=== PATIENT | female | born 1955 | race Caucasian/White ===

== ENCOUNTER → 2016-04-30 | Outpatient (CLI) | payer BC ==
[~2016-04-30] MED LIST: ALPR0.2550 PO; ATR20T PO; CALCIUM PO; CETI10CA PO; DCS100C PO; ESTR0.3T PO; HCT25T PO; METO-272 PO; POTASSIUM CLORIDE PO; VITAMIN E PO
[2016-04-30 11:56] LABS: ALANINE AMINOTRANSFERASE 24 U/L (0-55); ALBUMIN 4.1 G/DL (3.2-4.5); ANION GAP 9 MMOL/L (5-14); ASPARTATE AMINO TRANSFERASE 15 U/L (5-34); BILIRUBIN,TOTAL 0.8 MG/DL (0.1-1.0); BLOOD UREA NITROGEN 17 MG/DL (7-18); BUN/CREATININE RATIO 22; CALCIUM 9.8 MG/DL (8.5-10.1); CARBON DIOXIDE 28 MMOL/L (21-32); CHLORIDE 102 MMOL/L (98-107); CHOLESTEROL 136 MG/DL (< 200); CREATININE SERUM 0.79 MG/DL (0.60-1.30); DIRECT LDL 74 MG/DL (1-129); GFR ESTIMATED > 60; GLUCOSE 108 MG/DL (70-105); POTASSIUM 3.4 MMOL/L (3.6-5.0); SODIUM 139 MMOL/L (135-145); TOTAL PROTEIN 7.2 G/DL (6.4-8.2); TRIGLYCERIDES 169 MG/DL (<150); VLDL CHOLESTEROL 34 MG/DL (5-40)
== END ==
LOC: LAB 11:17
PROVIDERS: ATTEND Internal Medicine Cardiovascular Disease
DX: I25.10 Atherosclerotic heart disease of native coronary artery without angina pectoris (principal); I10 Essential (primary) hypertension; E78.4 Other hyperlipidemia; R73.01 Impaired fasting glucose
CPT/HCPCS: 36415; 80053; 80061

== ENCOUNTER → 2016-05-23 | Outpatient (CLI) | payer BC ==
--- OUTSIDE RECORDS SUMMARY | 2016-05-23 15:42 | XMS REPORT | Continuity of Care Document ---
Author Author [facility] Organization [facility] Address Unknown Phone Unavailable Allergies Active Description Code Type Severity Reaction Onset Reported/Identified Relationship to Patient Clinical Status Yes aspirin [id number] Drug Allergy Severe HIVES 08/03/2012 Yes iodine [id number] Drug Allergy Severe ANAPHYLAXIS, [place] 08/03/2012 Yes povidone-iodine [id number] Drug Allergy Severe ANAPHYLAXIS , [place] 08/03/2012 Yes celery [id number] Drug Allergy Unknown N/A 08/03/2012 Yes ibuprofen [id number] Drug Allergy Unknown HIVES 08/03/2012 Yes kiwi [id number] Drug Allergy Unknown N/A 08/03/2012 Yes red dye [id number] Drug Allergy Unknown HIVES 08/03/2012 Yes shellfish derived [id number] Drug Allergy Unknown N/A 08/03/2012 Yes Soap [id number] Drug Allergy Unknown HIVES 08/03/2012 Yes strawberry [id number] Drug Allergy Unknown N/A 08/03/2012 Medications Problems Date Dx Coded Attending Type Code Diagnosis Diagnosed By 08/03/2012 Ot 272.4 HYPERLIPIDEMIA NEC/NOS 08/03/2012 Ot 401.9 HYPERTENSION NOS 08/03/2012 Ot 414.01 CORONARY ATHEROSCLEROSIS OF [place] CORON 08/03/2012 Ot 477.9 ALLERGIC RHINITIS NOS 08/03/2012 Ot 786.59 CHEST PAIN NEC 08/03/2012 Ot 790.29 OTHER ABNORMAL GLUCOSE 08/03/2012 Ot V07.4 HORMONE REPLACEMENT THERAPY (POSTMENOPAU 08/03/2012 Ot V15.08 ALLERGY TO RADIOGRAPHIC DYE 08/03/2012 Ot V58.69 OTH MED,LT,CURRENT USE 08/04/2014 Ot 610.0 08/04/2014 Ot 793.89 08/04/2014 Ot V76.12 08/04/2014 Ot 719.47 08/04/2014 Ot 722.4 08/04/2014 Ot 726.73 08/04/2014 Ot 611.72 08/04/2014 Ot V76.12 08/04/2014 MELINA OSULLIVAN FACC, ALI FACP CCDS Ot 272.4 08/04/2014 MELINA OSULLIVAN FAC, ALI FACP CCDS Ot V58.69 08/04/2014 ROGER OSULLIVAN, SORAYA Curiel Ot 793.89 08/04/2014 ROGER OSULLIVAN, SORAYA Curiel Ot V76.12 08/04/2014 MAIDA OSULLIVAN, FIONA M Ot 455.9 08/04/2014 MAIDA OSULLIVAN, FIONA M Ot 530.11 08/04/2014 MAIDA OSULLIVAN, FIONA M Ot 531.90 08/04/2014 MAIDA OSULLIVAN, FIONA M Ot 553.3 08/04/2014 AMIDA OSULLIVAN, FIONA M Ot 562.10 08/04/2014 MAIDA OSULLIVAN, FIONA M Ot V16.0 08/04/2014 MAIDA OSULLIVAN, FIONA M Ot V76.51 08/04/2014 MAIDA OSULLIVAN, FIONA M Ot V72.84 08/04/2014 BAIMA, OVI L OLIVE PICKER Ot 272.4 08/04/2014 CASIMIROMA OVI L OLIVE PICKER Ot V58.69 08/04/2014 ROGER OSULLIVAN, SORAYA Curiel Ot 610.4 08/04/2014 BAIMA, OVI L OLIVE PICKER Ot 272.4 08/04/2014 BAIMA, OVI L OLIVE PICKER Ot 401.9 08/04/2014 BAIMA OVI L OLIVE PICKER Ot 414.01 08/04/2014 ROGER OSULLIVAN, SORAYA Curiel Ot 780.79 08/04/2014 BAIMA, OVI L OLIVE PICKER Ot 272.4 08/04/2014 BAIMA, OVI L OLIVE PICKER Ot 414.00 10/01/2014 BAIMA, OVI L OLIVE PICKER Ot 272.4 10/01/2014 BAIMA, OVI L OLIVE PICKER Ot 414.00 10/21/2014 MELINA OSULLIVAN FACC, ALI FACP CCDS Ot 272.4 10/21/2014 MELINA OSULLIVAN FACC, ALI FACP CCDS Ot 401.9 10/21/2014 MELINA OSULLIVAN FACC, ALI FACP CCDS Ot 414.00 10/21/2014 MELINA OSULLIVAN FACC, ALI FACP CCDS Ot 716.90 10/21/[address] [facility], ALI FACP CCDS Ot 729.81 10/21/[address] [facility], ALI FACP CCDS Ot 790.21 11/04/[address] [facility] CCD[facility] Ot 276.8 12/23/2014 SORAYA DURAN MD, Ot V76.12 03/16/2015 BAIMAOVI L OLIVE PICKER Ot E78.5 03/16/2015 BAIMA, OVI L OLIVE PICKER Ot I25.10 10/12/2015 BAIMA, OVI L OLIVE PICKER Ot E78.5 HYPERLIPIDEMIA, UNSPECIFIED 10/12/2015 BAIMA, OVI L OLIVE PICKER Ot I25.10 ATHSCL HEART DISEASE OF [place] CORONARY 11/04/2015 BAIMA OVI L OLIVE PICKER Ot E78.5 HYPERLIPIDEMIA, UNSPECIFIED 11/04/2015 BAIMA, OVI L OLIVE PICKER Ot I25.10 ATHSCL HEART DISEASE OF [place] CORONARY 12/09/2015 SORAYA DURAN MD Ot Z12.31 ENCNTR SCREEN MAMMOGRAM FOR MALIGNANT NE 04/30/2016 Ot 793.89 OTH (ABN) FINDINGS ON RADIOLOGICAL EXAMI 04/30/2016 Ot V76.12 OTH SCREEN MAMMO-MALIGN NEOPLASM OF [place] 04/30/2016 Ot 719.47 JOINT PAIN-ANKLE 04/30/2016 Ot 722.4 CERVICAL DISC DEGEN 04/30/2016 Ot 726.73 CALCANEAL SPUR 04/30/2016 Ot 611.72 LUMP OR MASS IN BREAST 04/30/2016 Ot V76.12 OTH SCREEN MAMMO-MALIGN NEOPLASM OF [place] 04/30/[address] [facility], [facility] FACP CCDS Ot 272.4 HYPERLIPIDEMIA NEC/NOS 04/30/[address] [facility] CCD[facility] Ot V58.69 OTH MED,LT,CURRENT USE 04/30/2016 SORAYA DURAN MD Ot 793.89 OTH (ABN) FINDINGS ON RADIOLOGICAL EXAMI 04/30/2016 SORAYA DURAN MD Ot V76.12 OTH SCREEN MAMMO-MALIGN NEOPLASM OF [place] 04/30/2016 MAIDA OSULLIVAN, FIONA Bender Ot 455.9 RESIDUAL HEMORRHOID TAGS 04/30/2016 FIONA BEY MD Ot 530.11 REFLUX ESOPHAGITIS 04/30/2016 MAIDA OSULLIVAN, FIONA Bender Ot 531.90 STOMACH ULCER NOS 04/30/2016 MAIDA OSULLIVAN, FIONA Bender Ot 553.3 DIAPHRAGMATIC HERNIA 04/30/2016 MAIDA OSULLIVAN, FIONA Bender Ot 562.10 DIVERTICULOSIS COLON (W/O MENT OF HEMORR 04/30/2016 MAIDA OSULLIVAN, FIONA Bender Ot V16.0 FAMILY HX-GI MALIGNANCY 04/30/2016 MAIDA OSULLIVAN, FIONA Bender Ot V76.51 SCREEN MAL NEOP-COLON 04/30/2016 MAIDA OSULLIVAN, FIONA Bender Ot V72.84 EXAM PRE-OPERATIVE NOS 04/30/2016 CASIMIROMA OVI L OLIVE PICKER Ot 272.4 HYPERLIPIDEMIA NEC/NOS 04/30/2016 BAIMA OVI L OLIVE PICKER Ot V58.69 OTH MED,LT,CURRENT USE 04/30/2016 ROGER OSULLIVAN, SORAYA Curiel Ot 610.4 MAMMARY DUCT ECTASIA 04/30/2016 BAIMA OVI L OLIVE PICKER Ot 272.4 HYPERLIPIDEMIA NEC/NOS 04/30/2016 BAIMA OVI L OLIVE PICKER Ot 401.9 HYPERTENSION NOS 04/30/2016 BAIMA, OVI L OLIVE PICKER Ot 414.01 CORONARY ATHEROSCLEROSIS OF [place] CORON 04/30/2016 ROGER OSULLIVAN, SORAYA Curiel Ot 780.79 OTH MALAISE FATIGUE 04/30/2016 BAIMA OVI L OLIVE PICKER Ot 272.4 HYPERLIPIDEMIA NEC/NOS 04/30/2016 BAIMA, OVI L OLIVE PICKER Ot 414.00 CORON ATHEROSCLER NOS TYPE VESSEL, NATIV 04/30/2016 MELINA OSULLIVAN FAC, ALI FACP CCDS Ot 276.8 HYPOPOTASSEMIA 04/30/2016 BAIMA OVI L OLIVE PICKER Ot 272.4 HYPERLIPIDEMIA NEC/NOS 04/30/2016 BAIMA OVI L OLIVE PICKER Ot 414.00 CORON ATHEROSCLER NOS TYPE VESSEL, NATIV 04/30/2016 MELINA OSULLIVAN FACC, ALI FACP CCDS Ot 272.4 HYPERLIPIDEMIA NEC/NOS 04/30/2016 MELINA OSULLIVAN FACC, ALI FACP CCDS Ot 401.9 HYPERTENSION NOS 04/30/2016 MELINA OSULLIVAN FACC, ALI FACP CCDS Ot 414.00 CORON ATHEROSCLER NOS TYPE VESSEL, NATIV 04/30/2016 MELINA OSULLIVAN FACC, ALI FACP CCDS Ot 716.90 ARTHROPATHY NOS-UNSPEC 04/30/2016 MELINA SETHI, KRISTINA FACP CCDS Ot 729.81 SWELLING OF LIMB 04/30/2016 MELINA SETHI, ALI FACP CCDS Ot 790.21 IMPAIRED FASTING GLUCOSE 04/30/2016 ROGER OSULLIVAN, SORAYA Curiel Ot V76.12 OTH SCREEN MAMMO-MALIGN NEOPLASM OF [place] 04/30/2016 OVI SANCHEZ OLIVE PICKER Ot E78.5 HYPERLIPIDEMIA, UNSPECIFIED 04/30/2016 CASIMIROMAOVI L OLIVE PICKER Ot I25.10 ATHSCL HEART DISEASE OF [place] CORONARY 04/30/2016 OVI SANCHEZ OLIVE PICKER Ot E78.5 HYPERLIPIDEMIA, UNSPECIFIED 04/30/2016 CASIMIROMA, OVI L OLIVE PICKER Ot I25.10 ATHSCL HEART DISEASE OF [place] CORONARY 04/30/2016 ROGER OSULLIVAN, SORAYA Curiel Ot Z12.31 ENCNTR SCREEN MAMMOGRAM FOR MALIGNANT NE 05/03/2016 MELINA OSULLIVAN FACC, KRISTINA FACP CCDS Ot E78.4 OTHER HYPERLIPIDEMIA 05/03/2016 MELINA SETHI, KRISTINA FACP CCDS Ot I10 ESSENTIAL (PRIMARY) HYPERTENSION 05/03/2016 MELINA SETHI, ALI FACP CCDS Ot I25.10 ATHSCL HEART DISEASE OF [place] CORONARY 05/03/2016 MELINA SETHI, ALI FACP CCDS Ot R73.01 IMPAIRED FASTING GLUCOSE 05/09/2016 MELINA OSULLIVAN FACC, ALI FACP CCDS Ot E78.4 OTHER HYPERLIPIDEMIA 05/09/2016 MELINA OSULLIVAN FACC, ALI FACP CCDS Ot I10 ESSENTIAL (PRIMARY) HYPERTENSION 05/09/2016 MELINA SETHI, ALI FACP CCDS Ot I25.10 ATHSCL HEART DISEASE OF [place] CORONARY 05/09/2016 MELINA SETHI, ALI FACP CCDS Ot R73.01 IMPAIRED FASTING GLUCOSE Procedures Results Test Result Range Comprehensive metabolic panel - 04/30/16 11:27 Serum or plasma sodium measurement (moles/volume) 139 mmol/ L 135-145 Serum or plasma potassium measurement (moles/volume) 3.4 mmol/L 3.6-5.0 Serum or plasma chloride measurement (moles/volume) 102 mmol /L 98-107 Carbon dioxide 28 mmol/L 21-32 Serum or plasma anion gap determination (moles/volume) 9 mmol/L 5-14 Serum or plasma urea nitrogen measurement (mass/volume) 17 mg/dL 7-18 Serum or plasma creatinine measurement (mass/volume) 0.79 mg /dL 0.60-1.30 Serum or plasma urea nitrogen/creatinine mass ratio 22 NRG Serum or plasma creatinine measurement with calculation of estimated glomerular filtration rate > NRG Serum or plasma glucose measurement (mass/volume) 108 mg/dL 70-105 Serum or plasma calcium measurement (mass/volume) 9.8 mg/dL 8.5-10.1 Serum or plasma total bilirubin measurement (mass/volume) 0.8 mg/dL 0.1-1.0 Serum or plasma alkaline phosphatase measurement (enzymatic activity/volume) 57 U/L 40-136 Serum or plasma aspartate aminotransferase measurement (enzymatic activity/ volume) 15 U/L 5-34 Serum or plasma alanine aminotransferase measurement (enzymatic activity/volume ) 24 U/L 0-55 Serum or plasma protein measurement (mass/volume) 7.2 g/dL 6.4-8.2 Serum or plasma albumin measurement (mass/volume) 4.1 g/dL 3.2-4.5 Lipid 1996 panel - 04/30/16 11:27 Serum or plasma triglyceride measurement (mass/volume) 169 mg/dL <150 Serum or plasma cholesterol measurement (mass/volume) 136 mg /dL < 200 Serum or plasma cholesterol in HDL measurement (mass/volume) 37 mg/dL 40-60 Cholesterol in LDL [mass/volume] in serum or plasma by direct assay 74 mg/dL 1-129 Serum or plasma cholesterol in VLDL measurement (mass/volume) 34 mg/dL 5-40 Encounters ACCT No. Visit Date/Time Discharge Status Pt. Type Provider Facility Loc./Unit Complaint [id number] 02/21/2015 11:46:00 2014 23:59:59 CLS Outpatient OVI SANCHEZ [facility] LAB HLP,CAD [id number] 12/07/2014 15:33:00 2014 23:59:59 CLS Outpatient SORAYA DURAN MD [facility] RAD SCREENING [id number] 10/21/2014 10:25:00 2014 23:59:59 CLS Outpatient MELINA OSULLIVAN FACC, KRISTINA SPENCER CCDS [facility] LAB HYPOKALEMIA [id number] 10/06/2014 13:44:00 2014 23:59:59 CLS Outpatient MELINA OSULLIVAN FACCKRISTINA FACP CCDS [facility] LAB HYPERTENSION,CAD,ARTHRITIS, LEFT LEG SWELLING,IFG [id number] 08/04/2014 09:53:00 2014 23:59:59 CLS Outpatient OVI SANCHEZP [facility] LAB CAD, HYPERLIPADEMIA [id number] 01/11/2014 08:15:00 2013 23:59:59 CLS Outpatient OVI SANCHEZ [facility] LAB HYPERLIPIDEMIA,CAD [id number] 06/29/2013 10:03:00 2013 23:59:59 CLS Outpatient SORAYA DURAN MD [facility] LAB MALAISE/FATIGUE,HX OF GLUCOSE [id number] 06/29/2013 10:00:00 2013 23:59:59 CLS Outpatient OVI SANCHEZ [facility] LAB CAD,HLP,HTN [id number] 03/26/2013 08:10:00 2012 23:59:59 CLS Outpatient SORAYA DURAN MD [facility] RAD ABN MAMMO [id number] 03/11/2013 09:53:00 2012 23:59:59 CLS Outpatient SORAYA DURAN MD [facility] RAD ROUTINE [id number] 01/09/2013 11:12:00 2012 23:59:59 CLS Outpatient OVI SANCHEZ [facility] LAB HYPERLIPADEMIA,STATIN LV [id number] 11/17/2012 06:36:00 2012 23:59:59 [facility] COLON CA,GERD [id number] 11/12/2012 07:34:00 2012 23:59:59 CLS Outpatient FIONA BEY MD [facility] PREOP FAMILY HISTORY/GERD [id number] 09/03/2012 08:11:00 2012 23:59:59 CLS Outpatient MELINA OSULLIVAN FACC, KRISTINA SPENCER CCDS [facility] LAB HL [id number] 04/30/2016 11:17:00 ACT Outpatient MELINA OSULLIVAN FACC, KRISTINA SPENCER CCDS [facility] LAB CAT,HTN [id number] 11/21/2015 09:54:00 ACT Outpatient SORAYA DURAN MD [facility] RAD SCREENING [id number] 10/11/2015 11:17:00 ACT Outpatient OVI SANCHEZ [facility] LAB HYPERLIPIDEMIA, CAD [id number] 08/04/2014 09:53:00 Document Registration [id number] 08/03/2012 00:50:00 Document Registration [id number] 03/05/2012 10:27:00 Document Registration [id number] 02/27/2011 10:23:00 Document Registration [id number] 02/05/2011 09:42:00 Document Registration [id number] 11/27/2010 09:03:00 Document Registration
[2016-05-23 16:06] LABS: ANION GAP 9 MMOL/L (5-14); BLOOD UREA NITROGEN 17 MG/DL (7-18); BUN/CREATININE RATIO 22; CALCIUM 9.9 MG/DL (8.5-10.1); CARBON DIOXIDE 29 MMOL/L (21-32); CHLORIDE 102 MMOL/L (98-107); CREATININE SERUM 0.79 MG/DL (0.60-1.30); GFR ESTIMATED > 60; GLUCOSE 81 MG/DL (70-105); POTASSIUM 3.8 MMOL/L (3.6-5.0); SODIUM 140 MMOL/L (135-145)
== END ==
LOC: LAB 15:38
PROVIDERS: ATTEND Nurse Practitioner Family
DX: E87.6 Hypokalemia (principal); I25.10 Atherosclerotic heart disease of native coronary artery without angina pectoris; I10 Essential (primary) hypertension
CPT/HCPCS: 36415; 80048

== ENCOUNTER → 2016-11-08 | Outpatient (CLI) | payer BC ==
[2016-11-08 11:30] LABS: ALANINE AMINOTRANSFERASE 24 U/L (0-55); ALBUMIN 4.2 GM/DL (3.2-4.5); ANION GAP 12 MMOL/L (5-14); ASPARTATE AMINO TRANSFERASE 17 U/L (5-34); BILIRUBIN,TOTAL 1.1 MG/DL (0.1-1.0); BLOOD UREA NITROGEN 15 MG/DL (7-18); BUN/CREATININE RATIO 19; CARBON DIOXIDE 26 MMOL/L (21-32); CHLORIDE 102 MMOL/L (98-107); CHOLESTEROL 155 MG/DL (< 200); CREATININE SERUM 0.78 MG/DL (0.60-1.30); DIRECT LDL 91 MG/DL (1-129); GFR ESTIMATED > 60; GLUCOSE 105 MG/DL (70-105); POTASSIUM 3.9 MMOL/L (3.6-5.0); SODIUM 140 MMOL/L (135-145); TOTAL PROTEIN 7.5 GM/DL (6.4-8.2); TRIGLYCERIDES 179 MG/DL (<150); VLDL CHOLESTEROL 36 MG/DL (5-40)
== END ==
LOC: LAB 10:42
PROVIDERS: ATTEND Nurse Practitioner Family
DX: E87.6 Hypokalemia (principal); I25.10 Atherosclerotic heart disease of native coronary artery without angina pectoris; I10 Essential (primary) hypertension
CPT/HCPCS: 36415; 80053; 80061

== ENCOUNTER → 2016-11-30 | Outpatient (CLI) | payer BC ==
--- NOTE | 2016-12-03 10:56 | Diagnostic Imaging Report ---
INDICATION: Screening mammogram. COMPARISON: 11/21/2015 and 12/07/2014. TECHNIQUE: Digital screening mammography was obtained with CAD and 3D tomosynthesis. FINDINGS: The breast tissue is heterogeneously dense and nodular. There is no new mass or suspicious calcification. There has been no interval change. IMPRESSION: Stable screening mammogram. No malignancy. Dictated by: Dictated on workstation # [id number]
== END ==
LOC: RAD 15:05
PROVIDERS: ATTEND Family Medicine
DX: Z12.31 Encounter for screening mammogram for malignant neoplasm of breast (principal)
CPT/HCPCS: 77067

== ENCOUNTER → 2017-04-26 | Outpatient (CLI) | payer BC ==
[2017-04-26 12:26] LABS: ALANINE AMINOTRANSFERASE 22 U/L (0-55); ALKALINE PHOSPHATASE 56 U/L (40-136); BILIRUBIN,TOTAL 0.6 MG/DL (0.1-1.0); BUN/CREATININE RATIO 22; CALCIUM 9.8 MG/DL (8.5-10.1); CARBON DIOXIDE 29 MMOL/L (21-32); CHLORIDE 101 MMOL/L (98-107); CHOLESTEROL 146 MG/DL (< 200); CREATININE SERUM 0.73 MG/DL (0.60-1.30); GFR ESTIMATED > 60; GLUCOSE 103 MG/DL (70-105); HDL CHOLESTEROL 41 MG/DL (40-60); POTASSIUM 4.1 MMOL/L (3.6-5.0); SODIUM 140 MMOL/L (135-145); TOTAL PROTEIN 7.2 GM/DL (6.4-8.2); TRIGLYCERIDES 180 MG/DL (<150); VLDL CHOLESTEROL 36 MG/DL (5-40)
== END ==
LOC: LAB 11:52
PROVIDERS: ATTEND Nurse Practitioner Family
DX: I25.10 Atherosclerotic heart disease of native coronary artery without angina pectoris (principal); I10 Essential (primary) hypertension; E78.4 Other hyperlipidemia; M79.89 Other specified soft tissue disorders
CPT/HCPCS: 36415; 80053; 80061

== ENCOUNTER → 2017-08-01 | Outpatient (CLI) | payer BC ==
--- NOTE | 2017-08-01 16:44 | Diagnostic Imaging Report ---
INDICATION: Cough and wheezing. PA and lateral chest obtained at 4:39 p.m. FINDINGS: Heart and mediastinal silhouette are normal in appearance. The lungs are clear. There is no pneumothorax or pleural fluid. IMPRESSION: Negative chest. Dictated by: Dictated on workstation # [id number]
== END ==
LOC: RAD 16:06
PROVIDERS: ATTEND Family Medicine
DX: R05 Cough (principal)
CPT/HCPCS: 71046

== ENCOUNTER → 2017-11-05 | Outpatient (CLI) | payer BC ==
[2017-11-05 09:57] LABS: ALANINE AMINOTRANSFERASE 22 U/L (0-55); ALBUMIN 4.3 GM/DL (3.2-4.5); ALKALINE PHOSPHATASE 52 U/L (40-136); BUN/CREATININE RATIO 19; CALCIUM 10.1 MG/DL (8.5-10.1); CARBON DIOXIDE 29 MMOL/L (21-32); CHLORIDE 103 MMOL/L (98-107); CHOLESTEROL 193 MG/DL (< 200); GFR ESTIMATED > 60; GLUCOSE 106 MG/DL (70-105); HDL CHOLESTEROL 39 MG/DL (40-60); POTASSIUM 3.7 MMOL/L (3.6-5.0); SODIUM 140 MMOL/L (135-145); TOTAL PROTEIN 7.9 GM/DL (6.4-8.2); TRIGLYCERIDES 206 MG/DL (<150); VLDL CHOLESTEROL 41 MG/DL (5-40)
== END ==
LOC: LAB 09:11
PROVIDERS: ATTEND Nurse Practitioner Family
DX: E78.5 Hyperlipidemia, unspecified (principal); I25.10 Atherosclerotic heart disease of native coronary artery without angina pectoris; I10 Essential (primary) hypertension
CPT/HCPCS: 36415; 80053; 80061

== ENCOUNTER → 2018-01-14 | Outpatient (CLI) | payer BC ==
--- NOTE | 2018-01-14 16:41 | Diagnostic Imaging Report ---
INDICATION: Routine screening. COMPARISON: 11/30/2016 and 11/21/2015. TECHNIQUE: 2D and 3D bilateral screening mammography was performed with CAD. 3D tomosynthesis was also performed and reviewed. FINDINGS: Both breasts are heterogeneously dense, limiting the sensitivity of mammography. The fibronodular parenchymal pattern appears stable. No new mass or malignant appearing microcalcifications are seen. The axillae are unremarkable. IMPRESSION: No mammographic features suspicious for malignancy are identified. ACR BI-RADS Category 2: Benign findings. Result letter will be mailed to the patient. Note: At least 10% of breast cancer is not imaged by mammography. Dictated by: Dictated on workstation # [id number]
== END ==
LOC: RAD 15:32
PROVIDERS: ATTEND Family Medicine
DX: Z12.31 Encounter for screening mammogram for malignant neoplasm of breast (principal)
CPT/HCPCS: 77067

== ENCOUNTER → 2019-01-16 | Outpatient (CLI) | payer BC ==
--- NOTE | 2019-01-19 10:50 | Diagnostic Imaging Report ---
INDICATION: Routine screening. COMPARISON: 01/14/2018 and 11/30/2016. TECHNIQUE: 2D and 3D bilateral screening mammography was performed with CAD. FINDINGS: Both breasts are heterogeneously dense, limiting the sensitivity of mammography. Circumscribed densities in the retroareolar aspects of both breasts appear stable and consistent with benign etiologies. No spiculated mass or malignant appearing microcalcifications are seen. The axillae are unremarkable. IMPRESSION: No mammographic features suspicious for malignancy are identified. ACR BI-RADS Category 2: Benign findings. Result letter will be mailed to the patient. Note: At least 10% of breast cancer is not imaged by mammography. Dictated by: Dictated on workstation # [id number]
== END ==
LOC: RAD 10:32
PROVIDERS: ATTEND Family Medicine
DX: Z12.31 Encounter for screening mammogram for malignant neoplasm of breast (principal)
CPT/HCPCS: 77067

== ENCOUNTER → 2019-01-16 | Outpatient (CLI) | payer BC | LOC: CARD 10:30 | PROVIDERS: ATTEND Nurse Practitioner Family | DX: I25.10 Atherosclerotic heart disease of native coronary artery without angina pectoris (principal) | CPT/HCPCS: 93306 ==

== ENCOUNTER → 2020-01-20 | Outpatient (CLI) | payer BC ==
--- NOTE | 2020-01-21 12:53 | Diagnostic Imaging Report ---
INDICATION: Routine screening. Comparison is made with prior mammogram from 01/16/2019 and 01/14/2018. 2-D and 3-D bilateral screening mammography was performed with CAD. Both breasts are heterogeneously dense, limiting the sensitivity of mammography. Circumscribed densities are again noted bilaterally and appear stable. No spiculated mass or malignant appearing microcalcifications are seen. Axillae are unremarkable. IMPRESSION: BI-RADS Category 2 No mammographic features suspicious for malignancy are identified. ACR BI-RADS Category 2: Benign findings. Result letter will be mailed to the patient. Note: At least 10% of breast cancer is not imaged by mammography. Dictated by: Dictated on workstation # [id number]
== END ==
LOC: RAD 15:17
PROVIDERS: ATTEND Family Medicine
DX: Z12.31 Encounter for screening mammogram for malignant neoplasm of breast (principal)
CPT/HCPCS: 77063; 77067

== ENCOUNTER → 2020-11-14 | Outpatient (CLI) | payer BC ==
--- NOTE | 2020-11-14 19:10 | Diagnostic Imaging Report ---
INDICATION: Right shoulder pain. AP, oblique, and transscapular views of the right shoulder are obtained. No fracture or acute bony abnormality is seen. There is mild degenerative change of the AC joint and glenohumeral joint. There is minimal distance between the acromion and humeral head, raising the possibility of rotator cuff pathology. IMPRESSION: No acute fracture or dislocation. Degenerative findings are present as above, with findings suggestive of rotator cuff pathology. Dictated by: Dictated on workstation # [id number]
== END ==
LOC: RAD 16:34
PROVIDERS: ATTEND Family Medicine
DX: M19.011 Primary osteoarthritis, right shoulder (principal)
CPT/HCPCS: 73030

== ENCOUNTER → 2021-01-31 | Outpatient (CLI) | payer BC ==
--- NOTE | 2021-01-31 20:01 | Diagnostic Imaging Report ---
EXAM: Digital mammogram, bilateral screening. COMPARISON: This study was compared to the prior exams of 01/20/2020, 01/16/2019, and 01/14/2018. At this time, there are no current complaints. The current study was also evaluated with a Computer Aided Detection (CAD) system. FINDINGS: The fibroglandular tissue in both breasts is heterogeneously dense. This does limit the sensitivity of this exam. Overall, there does not appear to have been any significant change when compared to the prior study. No primary or secondary sign of malignancy is noted. IMPRESSION: There is no radiographic evidence for malignancy. ACR category 1 ACR BI-RADS Category 1: Negative. Result letter will be mailed to the patient. Note: At least 10% of breast cancer is not imaged by mammography. Dictated by: Dictated on workstation # [id number]
== END ==
LOC: RAD 15:30
PROVIDERS: ATTEND Family Medicine
DX: Z12.31 Encounter for screening mammogram for malignant neoplasm of breast (principal)
CPT/HCPCS: 77063; 77067

== ENCOUNTER → 2021-08-14 | Outpatient (REF) ==
--- NOTE | 2021-08-14 13:39 | Diagnostic Imaging Report ---
Indication: Fall. Time of Exam: 12:56 PM Frontal and lateral views of the lumbar spine were obtained. Vertebral body heights are well maintained. No acute compression fracture seen. There is some generalized degenerative disc disease with variable disc space narrowing and marginal spurring. Lower lumbar facet arthropathy is noted. Impression: Lumbar spondylosis. No acute bony abnormality is detected. Dictated by: Dictated on workstation # [id number]
--- NOTE | 2021-08-14 13:43 | Diagnostic Imaging Report ---
INDICATION: Fall. TIME OF EXAM: 12:52 PM. FINDINGS: Frontal and lateral views of the skull were obtained. No definite skull fracture is detected. IMPRESSION: No skull fracture identified. Dictated by: Dictated on workstation # [id number]
--- NOTE | 2021-08-14 13:44 | Diagnostic Imaging Report ---
INDICATION: Fall. TIME OF EXAM: 12:53 PM. FINDINGS: The alignment is normal. There is degenerative disc disease at the C5-C6 level with disc space narrowing and marginal spurring. The prevertebral tissues are normal. The odontoid is intact. No fractures are seen. IMPRESSION: Lower cervical spondylosis. No acute bony abnormality is detected. Dictated by: Dictated on workstation # [id number]
--- NOTE | 2021-08-14 13:45 | Diagnostic Imaging Report ---
INDICATION: Fall and right shoulder pain. TIME OF EXAM: 12:54 p.m. FINDINGS: Glenohumeral and acromioclavicular alignment are normal. There does appear to be some narrowing of the acromiohumeral space suggestive of rotator cuff arthropathy. No fracture or dislocation is seen. IMPRESSION: Changes of rotator cuff arthropathy. No acute bony abnormality is detected. Dictated by: Dictated on workstation # [id number]
== END | disposition home or self-care (01) ==
LOC: OCC 12:35
PROVIDERS: ATTEND Family Medicine
DX: Z01.818 Encounter for other preprocedural examination (principal)
CPT/HCPCS: 70250; 72040; 72100; 73030

== ENCOUNTER → 2022-02-12 | Outpatient (CLI) | payer BC ==
--- NOTE | 2022-02-12 12:49 | Diagnostic Imaging Report ---
INDICATION: Routine screening. COMPARISON: 01/31/2021 and 01/20/2020. TECHNIQUE: 2D and 3D bilateral screening mammography was performed with CAD. FINDINGS: Both breasts are heterogeneously dense, limiting the sensitivity of mammography. There is a somewhat fibronodular parenchymal pattern which appears stable. No spiculated mass or malignant-appearing microcalcifications are seen. IMPRESSION: No mammographic features suspicious for malignancy are identified. ACR BI-RADS Category 2: Benign findings. Result letter will be mailed to the patient. Note: At least 10% of breast cancer is not imaged by mammography. Dictated by: Dictated on workstation # [id number]
== END ==
LOC: RAD 10:34
PROVIDERS: ATTEND Family Medicine
DX: Z12.31 Encounter for screening mammogram for malignant neoplasm of breast (principal)
CPT/HCPCS: 77063; 77067

== ENCOUNTER 2022-08-29 05:32 | Outpatient (CLI) | payer MEDICARE ==
[~2022-08-29] VITALS: Ht 170.1 cm; Wt 77.2 kg
[2022-08-29] MEDS ORDERED: ROFL60CR TP (10:40)
[2022-08-29] MEDS ORDERED: METO50TA7 PO (10:40)
[2022-08-29] MEDS ORDERED: HYDR25TA4 PO (10:40)
[2022-08-29] MEDS ORDERED: ALBU8.5H6 IH (10:40)
[2022-08-29] MEDS ORDERED: POTA-177 PO (10:40)
[2022-08-29] MEDS ORDERED: ESTR0.5T PO (10:40)
[2022-08-29] MEDS ORDERED: MV-M1TAB57 PO (10:40)
[2022-08-29] MEDS ORDERED: NF-VITD400 PO (10:40)
[2022-08-29] MEDS ORDERED: ALPR0.5T7 PO (10:40)
[2022-08-29] MEDS ORDERED: HYOS0.3738 PO (10:40)
[2022-08-29] MEDS ORDERED: OMEP40CA6 PO (10:40)
== END 2022-08-29 10:43 | disposition home or self-care (01) ==
LOC: PREOP 05:32
PROVIDERS: ATTEND Surgery
DX: Z01.818 Encounter for other preprocedural examination (principal)

== ENCOUNTER 2022-09-05 11:55 | Day surgery (SDC) | payer MEDICARE, OTHER ==
[~2022-09-05] VITALS: Ht 170.1 cm; Wt 77.2 kg
[~2022-09-05 11:55] MED LIST changes: +ALBU8.5H6 IH; +ALPR0.5T7 PO; +ESTR0.5T PO; +HYDR25TA4 PO; +HYOS0.3738 PO; +METO50TA7 PO; +MV-M1TAB57 PO; +NF-VITD400 PO; +OMEP40CA6 PO; +POTA-177 PO; +ROFL60CR TP
[2022-09-05] MEDS ORDERED: LACTATED RINGERS 1,000 ML IV STA (12:00)
[2022-09-05] MEDS ORDERED: LIDOCAINE JELLY 2% 6 ML SYRINGE MM PRN (12:00)
[2022-09-05] MEDS ORDERED: HURRICAINE EXT TUBE (BENZOCAINE) XX PRN (12:00)
[2022-09-05 12:25] VITALS: BP 120/86
--- NOTE | 2022-09-05 12:37 | Progress Note-Pre Operative ---
Pre-Operative Progress Note Date of Available H&P: September 05, 2022 Date H&P Reviewed: September 05, 2022 Time H&P Reviewed: 12:00 History & Physical: No changes noted Pre-Operative Diagnosis: GERD, screening o GASTON PAT MD September 05, 2022 12:37
--- NOTE | 2022-09-05 12:38 | Discharge Inst-Surgical ---
D/C Lap Instructions-BI Follow Up Activity as tolerated High Fiber Diet 25g or more per day Avoid Alcohol, Caffeine, Spicy [place] and Acid foods. Drink 64 fluid oz or more of fluids per day. Symptoms to Report: Fever over 101 degree F, Nausea/Vomiting If any problems/questions: Contact your physician or go to Emergency Room GASTON PAT MD September 05, 2022 12:38
[2022-09-05] MEDS ORDERED: ONDANSETRON 4 MG (ZOFRAN) ORAL DISSOLVE TAB PO PRN (12:45)
[2022-09-05] MEDS ORDERED: ONDANSETRON 4 MG/2 ML (SDV) Z0FRAN IVP PRN (12:45)
[2022-09-05] MEDS ORDERED: PROPOFOL INJECTION 50 ML IV ONE (13:36)
[2022-09-05] MEDS ORDERED: MIDAZOLAM 2 MG/2 ML (VERSED) VIAL ONE (13:36)
[2022-09-05] MEDS ORDERED: LIDOCAINE JELLY 2% 6 ML SYRINGE ONE (13:42)
[2022-09-05] MEDS ORDERED: proPOfol 200 MG/20 ML (DIPRIVAN) VIAL IV ONE (13:58)
[2022-09-05 14:21] VITALS: BP 118/62
[2022-09-05 14:26] VITALS: BP 135/69
[2022-09-05 14:31] VITALS: BP 141/75
--- NOTE | 2022-09-05 14:31 | Anesthesia-General Post-Op ---
MAC Patient Condition Mental Status/LOC: Same as Preop Cardiovascular: Satisfactory Nausea/Vomiting: Absent Respiratory: Satisfactory Pain: Controlled Complications: Absent Post Op Complications Complications None Follow Up Care/Instructions Patient Instructions None needed. Anesthesiology Discharge Order Discharge Order Patient is doing well, no complaints, stable vital signs, no apparent adverse anesthesia problems. No complications reported per nursing. LEX OTT DO September 05, 2022 14:31
[2022-09-05 14:35] VITALS: BP 141/75
--- NOTE | 2022-09-05 14:36 | Progress Note-Post Operative ---
Post-Operative Progess Note Surgeon (s)/Stock Grader (s) Surgeon GASTON PAT MD Stock Grader: none Pre-Operative Diagnosis GERD, screening colo Post-Operative Diagnosis reflux esophagitis(grade B), small HH(2cm), mild-mod gastritis. chronic stage 2 ext and int hemorrhoids, mod sigmoid diverticulosis, small asc colon polyp. Procedure & Operative Findings Date of Procedure 09/05/22 Procedure Performed/Findings EGD with bx. Colonoscopy with bx. Anesthesia Type mac Estimated Blood Loss Estimated blood loss (mL): minimal Specimens/Packing Specimens Removed ge jxn, antrum, asc colon polyp GASTON PAT MD September 05, 2022 14:36
[2022-09-05 15:11] VITALS: BP 141/75
--- NOTE | 2022-09-05 20:01 | OPERATIVE REPORT ---
DATE OF SERVICE: 09/05/2022 ATTENDING PRIMARY CARE PHYSICIAN: Castro Yan MD PREOPERATIVE DIAGNOSES: Gastroesophageal reflux disease, screening colonoscopy. POSTOPERATIVE DIAGNOSES: Reflux esophagitis, Lloyd grade B; small hiatal hernia approximately 2 cm in size, mild to moderate gastritis, chronic stage II external and internal hemorrhoids, moderate sigmoid diverticulosis, small polyp of the ascending colon approximately 2 to 3 mm in size. PROCEDURE: EGD with biopsy, colonoscopy with polypectomy with hot biopsy forceps. SURGEON: Gaston Pat MD ANESTHESIA: Monitored anesthesia care. ESTIMATED BLOOD LOSS: Minimal. FINDINGS: Reflux esophagitis, Lloyd grade B; small hiatal hernia approximately 2 cm in size, mild to moderate gastritis, chronic stage II external and internal hemorrhoids, moderate sigmoid diverticulosis, small polyp of the ascending colon approximately 2 to 3 mm in size. DISPOSITION: The patient tolerated the procedure well. INDICATIONS: The patient is a 67-year-old female referred over to us for an EGD and colonoscopy. Her last colonoscopy was approximately 10 years ago and she was found to have sigmoid diverticulosis. She also has an issue with gastroesophageal reflux disease and has a known hiatal hernia on the last EGD that we had done. She does report that she does have some alternating episodes of diarrhea and constipation; however, this has been a chronic issue. She does report a remote colon cancer with a maternal grandfather having the disease as well as a maternal grandmother having the disease. DESCRIPTION OF PROCEDURE: The patient was brought to the endoscopy suite and laid in the left lateral decubitus position. After adequate IV pain and sedative medications and monitored anesthesia care, the mouthpiece was applied. The endoscope was placed in the mouth, visualized the pharynx and hypopharyngeal region. Vocal cords, epiglottis and vallecula identified and appeared to be normal. The endoscope was then gently intubated in the esophageal opening and esophagus insufflated. The endoscope was then advanced into the first, second, third portions of esophagus, at the level of the GE junction, reflux esophagitis, Lloyd grade B identified. No ulcers or strictures identified. A biopsy was taken with forceps with visualization of good hemostasis. The endoscope was then advanced into the stomach and endoscope retroflexed, visualizing a small hiatal hernia approximately 2 cm in size. There was a [id number] gastritis. No ulcers, polyps, or any neoplasms. A biopsy was taken with forceps with visualization of good hemostasis. The endoscope was then advanced into the pylorus and the first and second portion of the duodenum, which appeared normal. Endoscope was slowly withdrawn while taking a second look and suctioning of residual air with no additional findings. A digital rectal examination was performed which revealed chronic stage II external and internal hemorrhoids, not actively edematous nor inflamed nor any bleeding. Normal sphincter tone was felt and there were no palpable masses. The endoscope was then intubated into the anus, rectum gently insufflated. The endoscope was then advanced through the valves of Brown of the rectum with no polyps or any neoplasms identified. Through the sigmoid colon, a moderate sigmoid diverticulosis was identified. There were no mucosal inflammatory changes to indicate any active diverticulitis. The endoscope was then advanced through the remainder of the descending, transverse and ascending colon to the cecum. At the proximal ascending colon, a small polyp identified approximately 3 mm in size and this was biopsied and destroyed with forceps and electrocautery with visualization of good hemostasis. The endoscope was slowly withdrawn while taking a second look and suctioning of residual air with no additional findings. The patient tolerated the procedure well. We will recommend the necessary lifestyle and dietary accommodation including small and more frequent meals, avoidance of eating at night as well as head elevation while lying supine. She also needs to avoid caffeinated beverages, spicy, greasy and acidic foods. We will also have her continue with omeprazole 40 mg daily. We will also recommend a high-fiber diet with a fiber supplement, which are equal or exceed 25 grams daily as well as significant amounts of water to promote soft consistency stools on a daily basis. We are currently unsure of why she has these intermittent episodes of diarrhea and constipation and we will have her follow up for further questioning about her other symptoms, which may be related to her gallbladder and so we will proceed with the appropriate test, which may encompass ultrasound and/or HIDA scan. Job ID: [id number] DocumentID: [id number] Dictated Date: 09/05/2022 14:28:12 Care Tech Date: 09/05/2022 19:59:00 Dictated By: GASTON PAT MD
== END 2022-09-05 15:26 | disposition home or self-care (01) ==
LOC: ENDO 11:55
PROVIDERS: ATTEND Surgery
DX: Z12.11 Encounter for screening for malignant neoplasm of colon (principal); D12.2 Benign neoplasm of ascending colon; K57.30 Diverticulosis of large intestine without perforation or abscess without bleeding; K64.1 Second degree hemorrhoids; K64.4 Residual hemorrhoidal skin tags; K29.70 Gastritis, unspecified, without bleeding; K44.9 Diaphragmatic hernia without obstruction or gangrene; K21.00 Gastro-esophageal reflux disease with esophagitis, without bleeding; Z80.0 Family history of malignant neoplasm of digestive organs; R19.7 Diarrhea, unspecified; K59.00 Constipation, unspecified

== ENCOUNTER → 2022-09-19 | Outpatient (CLI) | payer MEDICARE, OTHER ==
--- NOTE | 2022-09-19 09:31 | Diagnostic Imaging Report ---
PROCEDURE: US Gallbladder. TECHNIQUE: Multiple real-time grayscale images were obtained over the right upper quadrant in various projections. INDICATION: Right upper quadrant pain with nausea and vomiting. Liver is normal in size at 16 cm. The portal vein is patent and shows normal direction of flow. Gallbladder is without stones or sludge. No wall thickening or biliary duct dilatation is seen. The pancreas is unremarkable. Proximal aorta is nonaneurysmal. The distal aorta is not well visualized. Proximal IVC is unremarkable. Right kidney is without calculi or hydronephrosis. There is no ascites. IMPRESSION: Unremarkable gallbladder ultrasound. Dictated by: Dictated on workstation # [id number]
== END ==
LOC: RAD 07:11
PROVIDERS: ATTEND Surgery
DX: R10.11 Right upper quadrant pain (principal)
CPT/HCPCS: 76705

== ENCOUNTER → 2022-10-01 | Outpatient (CLI) | payer MEDICARE, OTHER ==
[~2022-10-01] MED LIST changes: +CATHETER FLUSH 10 ML SYR IVP PRN
--- NOTE | 2022-10-01 12:19 | Diagnostic Imaging Report ---
RADIOPHARMACEUTICAL: 5.49mCi Tc-99m Choletec IV INDICATION: Right upper quadrant pain COMPARISON: 09/19/2022 TECHNIQUE: Anterior dynamic imaging for 1 hour. Additional 60 minutes of imaging were obtained after the patient ingested an 8 ounce can of Ensure Plus. FINDINGS: There is homogenous uptake throughout the liver. The gallbladder is visualized at 10minutes and small bowel at 30minutes. After CCK analog administration, there is normal contraction of the gallbladder with normal calculated GBEF at 95%. The patient did not experience any right upper quadrant pain during the examination. IMPRESSION: 1. Normal HIDA Scan without evidence of cystic or common duct obstruction. 2. Normal GBEF of 95%. Dictated by: Dictated on workstation # [id number]
== END ==
LOC: CARD 09:22
PROVIDERS: ATTEND Surgery
DX: R10.11 Right upper quadrant pain (principal)
CPT/HCPCS: 78227; A9537

== ENCOUNTER → 2023-03-05 | Outpatient (CLI) | payer MEDICARE, OTHER ==
[~2023-03-05] MED LIST changes: -CATHETER FLUSH 10 ML SYR IVP PRN; -ESTR0.5T PO; +ESTR0.5T2 PO
--- NOTE | 2023-03-05 19:08 | Diagnostic Imaging Report ---
Indication: Routine screening. Comparison is made with prior mammograms from 02/12/2022 and 01/31/2021. 2-D and 3-D bilateral screening mammography was performed with CAD. Both breasts are heterogeneously dense, limiting the sensitivity of mammography. Nodular density retroareolar left breast appears stable. No new mass or malignant-appearing microcalcifications are identified. There are benign calcifications bilaterally. Axillae are unremarkable. IMPRESSION: BI-RADS Category 2. No mammographic features suspicious for malignancy are identified. ACR BI-RADS Category 2: Benign findings. Result letter will be mailed to the patient. Note: At least 10% of breast cancer is not imaged by mammography. Dictated by: Dictated on workstation # [id number]
== END ==
LOC: RAD 15:42
PROVIDERS: ATTEND Family Medicine
DX: Z12.31 Encounter for screening mammogram for malignant neoplasm of breast (principal)
CPT/HCPCS: 77063; 77067